=== PATIENT | female | born 1970 ===

== ENCOUNTER 2021-02-16 13:52 | Outpatient (RCR) | payer OTHER | END 2021-02-26 | LOC: PT 13:52 | PROVIDERS: ATTEND Specialist | DX: S46.011A Strain of muscle(s) and tendon(s) of the rotator cuff of right shoulder, initial encounter (principal) ==

== ENCOUNTER → 2021-03-28 | Outpatient (RCR) | payer OTHER | LOC: PT 03-20 09:46 | PROVIDERS: ATTEND Specialist | DX: S46.011D Strain of muscle(s) and tendon(s) of the rotator cuff of right shoulder, subsequent encounter (principal); M62.81 Muscle weakness (generalized); M25.511 Pain in right shoulder; M25.611 Stiffness of right shoulder, not elsewhere classified ==

== ENCOUNTER 2021-04-04 16:00 | Outpatient (RCR) | payer OTHER | END 2021-04-28 | disposition still patient (30) | LOC: PT 16:00 | PROVIDERS: ATTEND Specialist | DX: S46.011D Strain of muscle(s) and tendon(s) of the rotator cuff of right shoulder, subsequent encounter (principal); M62.81 Muscle weakness (generalized); M25.511 Pain in right shoulder; M25.611 Stiffness of right shoulder, not elsewhere classified ==

== ENCOUNTER 2021-05-02 16:09 | Outpatient (RCR) | payer OTHER | END 2021-05-29 | LOC: PT 16:09 | PROVIDERS: ATTEND Physician Assistant | DX: M79.671 Pain in right foot (principal); S93.601A Unspecified sprain of right foot, initial encounter ==

== ENCOUNTER 2021-05-23 15:00 | Outpatient (RCR) | payer OTHER | END 2021-05-29 | LOC: PT 15:00 | PROVIDERS: ATTEND Physician Assistant | DX: M75.111 Incomplete rotator cuff tear or rupture of right shoulder, not specified as traumatic (principal) ==

== ENCOUNTER 2021-05-30 11:37 | Outpatient (RCR) | payer OTHER | END 2021-06-26 | LOC: PT 11:37 | PROVIDERS: ATTEND Physician Assistant | DX: M75.111 Incomplete rotator cuff tear or rupture of right shoulder, not specified as traumatic (principal) | CPT/HCPCS: 97139 ==